=== PATIENT | female | born 1980 | race Hispanic/Latino ===

== ENCOUNTER 2021-02-26 18:23 | Emergency (ER) | payer SELFPAY ==
[~2021-02-26] VITALS: Ht 162.6 cm; Wt 95.3 kg
[2021-02-26] MEDS ORDERED: PENICILLIN G BENZATHINE LA 1.2 MU TBX IM STA (19:09)
== END 2021-02-26 20:23 | disposition home or self-care (01) ==
LOC: ER 18:31
DX: U07.1 COVID-19 (principal); J02.0 Streptococcal pharyngitis; F17.210 Nicotine dependence, cigarettes, uncomplicated
CPT/HCPCS: 83518; 99282; J0561; U0002